=== PATIENT | male | born 1965 | race Caucasian/White ===

== ENCOUNTER 2021-06-22 10:09 | Emergency (ER) | payer SELFPAY ==
[~2021-06-22] VITALS: Ht 177.8 cm; Wt 86.2 kg
[2021-06-22] MEDS ORDERED: SODIUM CHLORIDE 0.9% 1000ML 1,000 ML IV SCH (10:30)
[2021-06-22 10:38] LABS: BASOPHILS % 0.5 % (0.0-1.0); EOSINOPHILS % 0.1 % (0.0-6.0); HEMATOCRIT 37.7 % (38.2-49.6); HEMOGLOBIN 12.6 g/dL (14.0-18.0); LYMPHOCYTES # (AUTO) 2.4 (1.0-3.2); LYMPHOCYTES % 28.2 % (18.0-39.1); MEAN CORPUSCULAR HEMOGLOBIN 29.3 pg (28-32); MEAN CORPUSCULAR HGB CONC 33.4 g/dL (31-35); MEAN CORPUSCULAR VOLUME 87.7 fL (81-99); MONOCYTES # (AUTO) 0.4 (0.2-0.8); MONOCYTES % 4.4 % (4.4-11.3); NEUTROPHILS # (AUTO) 5.6 (2.1-6.9); NEUTROPHILS % 66.4 % (38.7-80.0); PLATELET COUNT 139 x10e3/uL (140-360); RED CELL DISTRIBUTION WIDTH 13.7 % (11.7-14.4)
[2021-06-22 10:50] LABS: INR 1.06; PROTHROMBIN TIME 14.8 seconds (11.9-14.5)
[2021-06-22 10:51] LABS: PARTIAL THROMBOPLASTIN TIME 28.5 seconds (23.8-35.5)
[2021-06-22 10:56] LABS: ALBUMIN 3.7 g/dL (3.5-5.0); ALBUMIN/GLOBULIN RATIO 0.8 (0.8-2.0); ANION GAP 17.8 mmol/L (8-16); CALCIUM 8.4 mg/dL (8.4-10.2); CREATININE, SERUM 0.83 mg/dL (0.72-1.25); POTASSIUM 3.8 mmol/L (3.5-5.1)
[2021-06-22 11:04] LABS: CREATINE KINASE MB 1.6 ng/mL (0-5.0)
[2021-06-22 11:07] LABS: MAGNESIUM 1.5 MG/DL (1.3-2.1)
[2021-06-22 11:09] LABS: SALICYLATE < 5.0 mg/dL (0-30)
[2021-06-22] MEDS ORDERED: LORAZEPAM INJ 2 MG/ML VIAL IM ONE (11:15)
[2021-06-22 11:50] LABS: AMPHETAMINES SCREEN,URINE NEGATIVE (NEGATIVE); BENZODIAZEPINES SCREEN,URINE NEGATIVE (NEGATIVE); PHENCYCLIDINE SCREEN,URINE NEGATIVE (NEGATIVE)
[2021-06-22] MEDS ORDERED: MULTIVITAMINS- 12 INJECTION 10 ML, FOLIC ACID MDV 1 MG, THIAMINE HCL INJ 100 MG in SODI... IV ONE (13:15)
== END 2021-06-22 15:24 | disposition home or self-care (01) ==
LOC: ER 10:15
DX: F10.129 Alcohol abuse with intoxication, unspecified (principal); M25.551 Pain in right hip; G89.29 Other chronic pain
CPT/HCPCS: 36415; 70450; 71045; 80053; 80307; 80320; 80329 ×2; 82550; 82553; 83735; 84484; 85025; 85610; 85730; 99284; J2060; J3411; J7030